=== PATIENT | male | born 1990 | race Caucasian/White ===

== ENCOUNTER 2016-12-31 22:36 | Emergency (ER) | payer SELFPAY ==
[2017-01-01] MEDS ORDERED: DIPH/PERTUSS(ACELL)/TETANUS VAC/PF 0.5 ML SYR (>=10YO) IM ONE (00:07)
[2017-01-01] MEDS ORDERED: LIDOCAINE 1% INJ-PF (10 MG/ML) 30 ML SDV INJ ONE (00:27)
[2017-01-01] MEDS ORDERED: AMOXICILLIN TR/POT CLAVULANATE 500-125 MG TAB PO ONE (00:27)
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
== END 2017-01-01 01:44 | disposition left against medical advice (07) ==
LOC: ER 22:36
DX: S61.215A Laceration without foreign body of left ring finger without damage to nail, initial encounter (principal); W26.0XXA Contact with knife, initial encounter; F17.210 Nicotine dependence, cigarettes, uncomplicated
CPT/HCPCS: 90715; 99281

== ENCOUNTER 2017-01-19 18:07 | Emergency (ER) | payer SELFPAY ==
[2017-01-19 18:17] VITALS: BP 135/83
--- NOTE | 2017-01-19 19:24 | ER Document Report ---
ED Medical Screen (RME) - General Chief Complaint: Skin Problem Stated Complaint: LEFT THUMB INJURY Time Seen by Provider: 01/19/17 19:06 Mode of Arrival: Ambulatory Information source: Patient Notes: 26-year-old male presents to ED for a infection to his left thumb 3 days. He states he was opening a can of tuna with a peak 38 when he cut his thumb about 3 days ago. He states it was a little swollen so he tried to squeeze to see if there was any pus and there was a little bit and he has been trying to clean it with alcohol and bandage it with Neosporin since then. He has a red swollen left thumb with red streaks up to his shoulder. He states his last tetanus was a couple weeks ago. 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 And he is homeless. Lungs clear resp regular and unlabored. I have greeted and performed a rapid initial assessment of this patient. A comprehensive ED assessment and evaluation of the patient, analysis of test results and completion of medical decision making process will be conducted by an additional ED providers. TRAVEL OUTSIDE OF THE [place] IN LAST 30 DAYS: No - Related Data Allergies/Adverse Reactions: No Known Allergies Allergy (Unverified 12/31/16 22:40) Past Medical History Renal/ Medical History: Denies: Hx Peritoneal Dialysis Physical Exam - Vital signs Vitals: Temp Pulse Resp BP Pulse Ox 98.6 F 99 20 135/83 H 97 01/19/17 18:12 01/19/17 18:12 01/19/17 18:12 01/19/17 18:12 01/19/17 18:12 Course - Vital Signs Vital signs: Temp Pulse Resp BP Pulse Ox 98.6 F 99 20 135/83 H 97 01/19/17 18:12 01/19/17 18:12 01/19/17 18:12 01/19/17 18:12 01/19/17 18:12
[2017-01-19] MEDS ORDERED: CEFTRIAXONE 1 GM/D5W RTU 1 GM/50 ML RTUPB IV ONE (19:35)
[2017-01-19] MEDS ORDERED: SULFAMETHOXAZOLE/TRIMETHOPRIM 800-160 MG TABLET PO ONE (19:35)
--- NOTE | 2017-01-19 19:42 | ER Document Report ---
ED Skin Rash/Insect Bite/Abscs - General Chief Complaint: Skin Problem Stated Complaint: LEFT THUMB INJURY Time Seen by Provider: 01/19/17 19:06 Mode of Arrival: Ambulatory Notes: Patient is a 26-year-old male who comes emergency department for chief complaint of pain and redness to his left thumb, he states that he has started to get redness spreading from his thumb up his arm and this became concerning to him. Symptoms started about 3 days ago. He states initially he cut his thumb on a tuna can lid. Patient denies fever or chills, nausea or vomiting. He denies ever using IV drugs, denies any recreational drugs. He is up-to-date on his tetanus within the past few weeks. He denies any medical history or surgeries. He also reports a rash that is itchy and red on his maddison-umbilical area. TRAVEL OUTSIDE OF THE [place] IN LAST 30 DAYS: No - Related Data Allergies/Adverse Reactions: No Known Allergies Allergy (Unverified 12/31/16 22:40) Past Medical History - General Information source: Patient - Social History Smoking Status: Current Every Day Smoker Chew tobacco use (# tins/day): No Frequency of alcohol use: Social Drug Abuse: None Lives with: Alone Family History: Reviewed & Not Pertinent Patient has suicidal ideation: No Patient has homicidal ideation: No Renal/ Medical History: Denies: Hx Peritoneal Dialysis Surgical Hx: Negative - Immunizations Immunizations up to date: Yes Hx Diphtheria, Pertussis, Tetanus Vaccination: Yes Review of Systems - Review of Systems Constitutional: No symptoms reported EENT: No symptoms reported Cardiovascular: No symptoms reported Respiratory: No symptoms reported Gastrointestinal: No symptoms reported Genitourinary: No symptoms reported Male Genitourinary: No symptoms reported Musculoskeletal: See HPI Skin: See HPI Hematologic/Lymphatic: No symptoms reported Neurological/Psychological: No symptoms reported Physical Exam - Vital signs Vitals: Temp Pulse Resp BP Pulse Ox 98.6 F 99 20 135/83 H 97 01/19/17 18:12 01/19/17 18:12 01/19/17 18:12 01/19/17 18:12 01/19/17 18:12 Interpretation: Normal - General General appearance: Appears well In distress: None - HEENT Head: Normocephalic, Atraumatic Eyes: Normal Pupils: PERRL - Respiratory Respiratory status: No respiratory distress Chest status: Nontender Breath sounds: Normal. No: Decreased air movement, Wheezing Chest palpation: Normal - Cardiovascular Rhythm: Regular. No: Tachycardia Heart sounds: Normal auscultation, S1 appreciated, S2 appreciated Murmur: No - Abdominal Inspection: Normal Distension: No distension Bowel sounds: Normal Tenderness: Nontender Organomegaly: No organomegaly - Back Back: Normal, Nontender. No: Tender - Extremities General upper extremity: Other - There is erythema and mild soft tissue swelling over the left thumb, there is a small nearly closed superficial laceration over the medial side of the thumb, full range of motion of the thumb , normal capillary refill and sensation. There is a red line that extends up the patient's volar surface of the arm to the antecubital space and then continues along the medial aspect of the arm about mid way up the arm. Normal lymph nodes of the axillary area. Normal upper extremity exam otherwise. General lower extremity: Normal inspection, Nontender, Normal color, Normal ROM , Normal temperature, Normal weight bearing. No: Ivonne's sign - Neurological Neuro grossly intact: Yes Cognition: Normal Orientation: AAOx4 Theresa Coma Scale Eye Opening: Spontaneous Somis Coma Scale Verbal: Oriented Somis Coma Scale Motor: Obeys Commands Theresa Coma Scale Total: 15 Speech: Normal Motor strength normal: LUE, RUE, LLE, RLE Sensory: Normal - Psychological Associated symptoms: Normal affect, Normal mood - Skin Skin Temperature: Warm Skin Moisture: Dry Skin Color: Normal Character of irregularity: Other - Mild erythematous and dried out appearance of the area just below the umbilicus Course - Re-evaluation Re-evalutation: Patient with erythematous and slightly swollen left thumb, no kanavel signs, full range of motion, no induration or fluctuance, when squeezed the wound has a small amount of clear fluid come out of it. Patient does have a red streak going up to his elbow and then spreading along his medial arm on the left side. Well-appearing, no tachycardia, no fever, alert and talkative. No crepitus. 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 Patient given dose of Rocephin, Bactrim. Discussed with Dr. Monet. Recommends discharge on Keflex with emphasized return precautions. Patient states he will get his mom to buy the antibiotics, states he will return if he worsens in any way including swelling, fever, increased spreading, etc. - Vital Signs Vital signs: Temp Pulse Resp BP Pulse Ox 98.6 F 99 18 135/83 H 98 01/19/17 18:12 01/19/17 18:12 01/19/17 22:01 01/19/17 18:12 01/19/17 22:01 - Laboratory Result Diagrams: 01/19/17 19:32 01/19/17 19:32 Laboratory results interpreted by me: 01/19/17 01/19/17 19:32 19:32 RDW 14.3 H Calcium 10.3 H Alkaline Phosphatase 135 H Total Protein 8.4 H Discharge - Discharge Clinical Impression: Thumb swelling Cellulitis Qualifiers: Site of cellulitis: unspecified site Qualified Code(s): L03.90 - Cellulitis, unspecified Condition: Stable Disposition: HOME, SELF-CARE Additional Instructions: Your workup does not indicate any concerning abnormalities. Examinations shows cellulitis infection, you have been given initial doses of antibiotics here, you must fill and take the antibiotic as prescribed. Keep the wound area on the thumb clean, apply topical antibiotic dressing. Return to the emergency department immediately for any concerning or worsening symptoms including fever, swelling of the thumb, discolored discharge, spreading redness, swelling of your arm, or any other concerning symptoms. Prescriptions: Cephalexin Monohydrate [Keflex 500 mg Capsule] 500 mg PO QID #28 capsule Forms: Return to Work
--- NOTE | 2017-01-19 19:49 | RADIOLOGY REPORT (SQ) ---
EXAM DESCRIPTION: HAND LEFT 3 VIEWS COMPLETED DATE/TIME: 01/19/2017 7:40 pm REASON FOR STUDY: infection to left thumb COMPARISON: None. EXAM PARAMETERS: NUMBER OF VIEWS: Three views. TECHNIQUE: AP, lateral and oblique radiographic images acquired of the left hand. LIMITATIONS: None. FINDINGS: MINERALIZATION: Normal. BONES: No acute fracture or dislocation. No worrisome bone lesions. JOINTS: No effusions. SOFT TISSUES: No soft tissue swelling. No foreign body. OTHER: No other significant finding. IMPRESSION: NO RADIOGRAPHIC EVIDENCE OF ACUTE INJURY. TECHNICAL DOCUMENTATION: JOB ID: [id number] [employer]- All Rights Reserved
[2017-01-19 19:51] LABS: ABSOLUTE EOSINOPHILS # (AUTO) 0.1 10^3/uL (0.0-0.6); ABSOLUTE LYMPHOCYTES (AUTO) 1.7 10^3/uL (0.5-4.7); ABSOLUTE MONOCYTES (AUTO) 0.7 10^3/uL (0.1-1.4); ABSOLUTE NEUT (AUTO) 4.6 10^3/uL (1.7-8.2); BASOPHILS % (AUTO) 0.6 % (0-2); HEMATOCRIT 43.6 % (37.9-51.0); HGB HCT DIFFERENCE 1.4; LYMPHOCYTES % (AUTO) 23.5 % (13-45); MEAN CORPUSCULAR HEMOGLOBIN 30.1 pg (27.0-33.4); MEAN CORPUSCULAR HGB CONC 34.5 g/dL (32.0-36.0); MEAN CORPUSCULAR VOLUME 87 fl (80-97); MONOCYTES % (AUTO) 10.1 % (3-13); RED CELL DISTRIBUTION WIDTH 14.3 % (11.5-14.0); SEGMENTED NEUTROPHILS % (AUTO) 63.8 % (42-78); WHITE BLOOD COUNT 7.2 10^3/uL (4.0-10.5)
[2017-01-19] MEDS ORDERED: KETOROLAC TROMETHAMINE INJ/PF 30 MG/1 ML SDV IV ONE (19:51)
[2017-01-19 20:03] LABS: ALANINE AMINOTRANSFERASE 39 U/L (21-72); ALKALINE PHOSPHATASE 135 U/L (38-126); ANION GAP 15 (5-19); ASPARTATE AMINO TRANSFERASE 43 U/L (17-59); BILIRUBIN,DIRECT 0.4 mg/dL (0.0-0.4); BILIRUBIN,TOTAL 0.7 mg/dL (0.2-1.3); BLOOD UREA NITROGEN 10 mg/dL (7-20); CALCIUM 10.3 mg/dL (8.4-10.2); CARBON DIOXIDE 24 mmol/L (22-30); CHLORIDE 99 mmol/L (98-107); CREATININE RESULT 0.77 mg/dL (0.52-1.25); GLUCOSE 76 mg/dL (75-110); POTASSIUM 4.3 mmol/L (3.6-5.0); SODIUM 137.7 mmol/L (137-145); TOTAL PROTEIN 8.4 g/dL (6.3-8.2)
[2017-01-19] MEDS ORDERED: CEPHALEXIN 500 MG CAPSULE PO ONE (21:08)
== END 2017-01-19 22:03 | disposition home or self-care (01) ==
LOC: ER 18:07
DX: L03.90 Cellulitis, unspecified (principal); M79.89 Other specified soft tissue disorders; R21 Rash and other nonspecific skin eruption; F17.200 Nicotine dependence, unspecified, uncomplicated
CPT/HCPCS: 99284; 96375; 96365; 36415; 87040; 85025; 80053; 73130; J1885; J0696